=== PATIENT | female | born 1950 | race Caucasian/White ===

== ENCOUNTER → 2017-09-01 | Day surgery (SDC) | payer MEDICARE, BC, OTHER ==
[~2017-09-01] VITALS: Ht 154.9 cm; Wt 73.5 kg
[~2017-09-01] MED LIST: ACETAMINOPHEN 1000 MG/100 ML 100 ML IV ONE; ACETAMINOPHEN 1000 MG/100 ML 100 ML IV SCH; APIX2.5T PO; CHLORHEXIDINE GLUCONATE 2 % 1 PACK (2 CLOTHS) TOPICAL PRN; DIAZ10 PO; DO NOT ADM ANY ANTICOAGULANT DRUGS PRN; DOXA1TAB34 PO; FAMOTIDINE 20 MG/2 ML VIAL ONE; FLUV50TA PO; GLYCOPYRROLATE 1 MG/5 ML SYRINGE IV PUSH ONE; HYDROmorphone HCL PF 2 MG/ML VIAL ONE; LACTATED RINGER'S 1000 ML INJ 1,000 ML IV ONE; LEVO200T4 PO; LIDOCAINE HCL 1% PF 5 ML SYRINGE OTHER ONE; LORazepam 2 MG/ML VIAL IV PUSH ONE; LORazepam 2 MG/ML VIAL ONE; LYRI200C PO; METH10TA PO; METHADONE HCL 10 MG TAB PO SCH; METOPROLOL TARTRATE 25 MG TAB PO PRN; MIDAZOLAM HCL 2 MG/2 ML VIAL ONE; OLME1TAB21 PO; ONDANSETRON HCL 4 MG/2 ML VIAL IV PUSH ONE; ONDANSETRON HCL 4 MG/2 ML VIAL IV PUSH PRN; OXYC-395 PO; PHENYLEPH/NS 1000 MCG/10 ML SYR IV ONE; POVIDONE IODINE 5% (ANTISEPSIS KIT) 4 APPLICATIONS EACH NARE PRN; PREGABALIN 100 MG CAP PO ONE; PROPOFOL 200 MG/20 ML AMP IV ONE; SODIUM CHLORID 0.9% 500 ML IV PRN; SODIUM CHLORIDE 0.9% FLUSH 10 ML FLUSH IV FLUSH PRN; SOMA350T PO; TRAD5TAB PO; ceFAZolin INJ 1,000 MG VIAL IV ONE; cefTRIAXone INJ 250 MG in SODIUM CHLORIDE 0.9% INJ 25 ML IV ONE; ePHEDrine/NS 25 MG/5 ML SYRINGE IV ONE; fluvoxaMINE MALEATE 50 MG TAB PO SCH
[2017-09-01] MEDS: LACTATED RINGER'S 1000 ML IV PRN ×2 (06:02→06:09)
[2017-09-01 06:28] LABS: BACTERIA, URINE RARE /hpf; BILIRUBIN, URINE NEG (NEG); BLOOD, URINE NEG (NEG); GLUCOSE,URINE NEG (NEG); KETONE, URINE NEG (NEG); NITRITE,URINE NEG (NEG); PH, URINE 5.5 (5.0-8.5); SQUAMOUS EPITHELIAL CELL URINE 14 /hpf (0-5); URINE COLOR LIGHT-YELLOW (YELLW/STRAW); URINE LEUKOCYTE ESTERASE MOD (NEG)
--- NOTE | 2017-09-01 08:42 | PD.OP ---
copy to Dr. Coley Operative Report Date of Surgery: Sep 01, 2017 Preoperative Diagnosis: vulvar abcess, previously incised and drained in office Postoperative Diagnosis: same Procedure: excision and debridement of nonviable non infected adipose tissue and fistulous track Anesthesia: GET Surgeon: Rebekah Morelos Grants Specialist(s): MS Hany 3 Resident Surgeon: Rebekah Hernandez MD Sep 01, 2017 08:42
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
[2017-09-01 10:15] VITALS: TEMP 97.5
[2017-09-01 11:10] VITALS: BP 110/60; PULSE 63; RESP 18; O2SAT 100
--- NOTE | 2017-09-02 12:06 | EKG ---
Date Performed: 09/01/2017 Time Performed: 06:15:45 PTAGE: 67 years EKG: SINUS BRADYCARDIA BORDERLINE ECG PREVIOUS TRACING : 07/31/2012 11.19 When compared to the prior EKG, the patient is now bradycar dic. DOCTOR: Meli Kruse Interpretating Date/Time 09/02/2017 12:05:11
== END | disposition home or self-care (01) ==
LOC: HSDC 05:09
PROVIDERS: ATTEND Obstetrics & Gynecology
DX: N76.4 Abscess of vulva (principal); I10 Essential (primary) hypertension
CPT/HCPCS: 00400; 11043; 81001; 87015; 87070; 87102; 87116; 87205; 87206; 88305; 93005; J0131; J0690; J0696; J1170; J2060; J2250; J2370; J2405; J3010; J7120

== ENCOUNTER → 2017-12-06 | Outpatient (CLI) | payer MEDICARE, BC, OTHER ==
[~2017-12-06] MED LIST changes: -ACETAMINOPHEN 1000 MG/100 ML 100 ML IV ONE; -ACETAMINOPHEN 1000 MG/100 ML 100 ML IV SCH; -CHLORHEXIDINE GLUCONATE 2 % 1 PACK (2 CLOTHS) TOPICAL PRN; -DO NOT ADM ANY ANTICOAGULANT DRUGS PRN; -FAMOTIDINE 20 MG/2 ML VIAL ONE; -GLYCOPYRROLATE 1 MG/5 ML SYRINGE IV PUSH ONE; -HYDROmorphone HCL PF 2 MG/ML VIAL ONE; -LACTATED RINGER'S 1000 ML INJ 1,000 ML IV ONE; -LIDOCAINE HCL 1% PF 5 ML SYRINGE OTHER ONE; -LORazepam 2 MG/ML VIAL IV PUSH ONE; -LORazepam 2 MG/ML VIAL ONE; -METHADONE HCL 10 MG TAB PO SCH; -METOPROLOL TARTRATE 25 MG TAB PO PRN; -MIDAZOLAM HCL 2 MG/2 ML VIAL ONE; -ONDANSETRON HCL 4 MG/2 ML VIAL IV PUSH ONE; -ONDANSETRON HCL 4 MG/2 ML VIAL IV PUSH PRN; -PHENYLEPH/NS 1000 MCG/10 ML SYR IV ONE; -POVIDONE IODINE 5% (ANTISEPSIS KIT) 4 APPLICATIONS EACH NARE PRN; -PREGABALIN 100 MG CAP PO ONE; -PROPOFOL 200 MG/20 ML AMP IV ONE; -SODIUM CHLORID 0.9% 500 ML IV PRN; -SODIUM CHLORIDE 0.9% FLUSH 10 ML FLUSH IV FLUSH PRN; -ceFAZolin INJ 1,000 MG VIAL IV ONE; -cefTRIAXone INJ 250 MG in SODIUM CHLORIDE 0.9% INJ 25 ML IV ONE; -ePHEDrine/NS 25 MG/5 ML SYRINGE IV ONE; -fluvoxaMINE MALEATE 50 MG TAB PO SCH
--- NOTE | 2017-12-06 16:43 | EKG ---
Date Performed: 12/06/2017 Time Performed: 08:18:02 PTAGE: 67 years EKG: Sinus bradycardia. Prolonged QT interval Extensive T wave changes may be due to myocardial ischemia Abnormal ECG PREVIOUS TRACING : 09/01/2017 06.15 Since the prior tracing, the ischemic appearing anterolater al T-wave changes are new. Acute coronary syndrome should be excluded clinically. DOCTOR: Dafne Hubbard Interpretating Date/Time 12/06/2017 16:42:44
== END ==
LOC: HCAV 08:09
PROVIDERS: ATTEND Internal Medicine Hematology & Oncology
DX: R94.31 Abnormal electrocardiogram [ECG] [EKG] (principal)
CPT/HCPCS: 93005